=== PATIENT | male | born 1990 | race Asian ===

== ENCOUNTER 2019-10-01 11:39 | Emergency (ER) | payer OTHER ==
[~2019-10-01] VITALS: Ht 162.6 cm; Wt 98.4 kg
[2019-10-01] MEDS ORDERED: MOMETASONE FURO45 GM TOP (11:57)
[2019-10-01 12:16] LABS: ABSOLUTE NEUTROPHILS 7.2 thou/uL (1.4-8.2); BASOPHILS 0.7 % (0.0-2.0); EOSINOPHILS 3.5 % (0.0-3.0); HEMATOCRIT 47.1 % (42.0-52.0); HEMOGLOBIN 16.2 gm/dL (14.0-18.0); LYMPHOCYTES 18.3 % (24.0-44.0); MCHC 34.4 g/dL (28.0-37.0); MCV 87.1 fL (80.0-100.0); MONOCYTES 8.1 % (1.0-8.0); PLATELET COUNT 246 thou/uL (150-400); POLYS 69.4 % (36.0-66.0); RBC 5.41 mil/uL (4.50-6.00); RDW 12.9 % (10.5-14.5); WBC 10.4 thou/uL (4.0-11.0)
[2019-10-01 12:22] LABS: CALCIUM 9.6 mg/dL (8.5-10.1); POTASSIUM 4.1 mmol/L (3.5-5.1)
[2019-10-01 12:26] LABS: APTT 32.1 Seconds (24.5-32.8); INR 1.1; PROTIME 11.4 Seconds (9.3-11.4)
[2019-10-01 12:28] LABS: ALBUMIN 4.2 g/dL (3.4-5.0); TOTAL BILIRUBIN 0.4 mg/dL (<0.1-1.0); TOTAL PROTEIN 8.4 g/dL (6.4-8.2)
[2019-10-01] MEDS ORDERED: NORVASC5 M1 PO (15:20)
[2019-10-01 15:28] VITALS: BP 145/80
== END 2019-10-01 15:28 | disposition home or self-care (01) ==
LOC: ER 11:39
PROVIDERS: Emergency Medicine
DX: L53.9 Erythematous condition, unspecified (principal); M79.89 Other specified soft tissue disorders; Z88.6 Allergy status to analgesic agent; Z91.018 Allergy to other foods

== ENCOUNTER → 2019-10-10 | Outpatient (CLI) | payer OTHER ==
[~2019-10-10] MED LIST: MOMETASONE FURO45 GM TOP; NORVASC5 M1 PO
== END ==
LOC: CAT 10-09 09:44
DX: R60.0 Localized edema (principal)

== ENCOUNTER 2019-10-13 12:29 | Inpatient (IN) | payer OTHER ==
[~2019-10-13] VITALS: Ht 162.6 cm; Wt 98.4 kg
[2019-10-13 14:34] LABS: ABSOLUTE NEUTROPHILS 5.7 thou/uL (1.4-8.2); BASOPHILS 0.5 % (0.0-2.0); EOSINOPHILS 2.2 % (0.0-3.0); HEMATOCRIT 44.3 % (42.0-52.0); HEMOGLOBIN 14.8 gm/dL (14.0-18.0); LYMPHOCYTES 18.3 % (24.0-44.0); MCH 29.3 pg (26.0-34.0); MCHC 33.4 g/dL (28.0-37.0); MCV 87.9 fL (80.0-100.0); MONOCYTES 10.2 % (1.0-8.0); PLATELET COUNT 321 thou/uL (150-400); POLYS 68.8 % (36.0-66.0); RBC 5.04 mil/uL (4.50-6.00); RDW 12.6 % (10.5-14.5); WBC 8.4 thou/uL (4.0-11.0)
[2019-10-13 14:48] LABS: CALCIUM 9.2 mg/dL (8.5-10.1); POTASSIUM 4.7 mmol/L (3.5-5.1)
[2019-10-13 14:53] LABS: ALBUMIN 3.7 g/dL (3.4-5.0); TOTAL BILIRUBIN 0.6 mg/dL (<0.1-1.0); TOTAL PROTEIN 7.7 g/dL (6.4-8.2)
[2019-10-13 15:11] LABS: INR 1.1; PROTIME 11.1 Seconds (9.3-11.4)
[2019-10-13 15:24] LABS: APTT 134.7 Seconds (24.5-32.8)
--- NOTE | 2019-10-13 16:08 | NUR ---
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 PT TX HIMSELF TO ICU BED. ARMBOARD ON LEFT ELBOW TO KEEP ARM STRAIGHT. TPA STARTED, INTEGRILIN INFUSING. ECHO AT BEDSIDE TO COMPLETE. PT'S FATHER BROUGHT HIS LAPTOP AND IPHONE [employer] TO ED, BROUGHT TO ICU BY RT. PT STATES HE IS HUNGRY, REG DIET ORDERED, JELLO AND PUDDING GIVEN SNACKS. WILL HAVE PRN PAIN MEDICINE AFTER HE EATS A BIT OF FOOD.
[2019-10-13 16:15] VITALS: BP 122/66
[2019-10-13 16:30] VITALS: BP 123/69
[2019-10-13 17:15] VITALS: BP 135/83
[2019-10-13 18:15] VITALS: BP 130/74
--- NOTE | 2019-10-14 06:38 | NUR ---
ASSESSMENTS CHARTED, MEDS GIVEN CHARTED. PATIENT RESTING IN BED WITH LEFT UPPER EXTREMITY SPLINTED AND ELEVATED. TPN AND INTEGRILLIN RUNNING CONTINUOUSLY DURING SHIFT. PATIENT HAS VENOUS SHEATH IN PLACE FOR DRIPS. C/O PAIN 8 TO XERO DURING SHIFT. PATIENT HAS BEEN NPO SINCE MIDNIGHT FOR RETURN TO IR THIS MORNING. FALL PRECAUTIONS IN PLACE.
[2019-10-14 08:00] VITALS: BP 126/62
--- NOTE | 2019-10-14 08:10 | NUR ---
VITAL SIGN MONITOR IN PATIENT ROOM DID NOT SAVE PATIENT'S VITAL THROUGH THE NIGHT. THERE ARE NO VITALS TO ENTER. PATIENT'S HEARTRATE, OXYGEN SATURATION, BLOOD PRESSURE, MAP AND PLETH WERE ALL WITHIN NORMAL PARAMETERS DURING SHIFT.
--- NOTE | 2019-10-14 08:42 | 2DMMODE ---
[facility] [place] [address] 2 D/M-MODE ECHOCARDIOGRAM Name: ELISHA ALMENDAREZ ABRAM Room #: 248-P [facility] [id number] Admission: 10/13/19 Attend Phys: Sky Restrepo MD Discharge: Date of : 89 Report #: [id number] THIS REPORT FOR: cc: Juan Buchanan MD, John H. MD Lundgren, Craig H. MD [facility] ~ APPROVED REPORT Study performed: 10/13/2019 15:50:38 EXAM: Comprehensive 2D, Doppler, and color-flow Echocardiogram Patient Location: Bedside Room #: 248 Status: routine BSA: 2.03 HR: 80 bpm BP: 132/75 mmHg Rhythm: NSR Other Information Study Quality: Adequate Technically limited study due to inability to position patient. Indications Hypertension/HDD 2D Dimensions RVDd: 32.00 mm IVSd: 10.44 (7-11mm) LVOT Diam: 23.07 (18-24mm) LVDd: 50.17 mm PWd: 10.01 (7-11mm) Ascending Ao: 26.63 (22-36mm) LVDs: 33.13 (25-40mm) Aortic Root: 28.32 mm IVC: 18.00 mm Volumes Left Atrial Volume (Systole) Single Plane 4CH: 36.42 mL Single Plane 2CH: 23.27 mL LA ESV Index: 17.00 mL/m2 Aortic Valve AoV Peak Kobe.: 1.31 m/s AO Peak Gr.: 6.82 mmHg LVOT Max P.55 mmHg LVOT Max V: 0.94 m/s [facility] [place] [address] 2 D/M-MODE ECHOCARDIOGRAM Name: ELISHA ALMENDAREZ Room #: 248-P [facility]#: [id number] Admission: 10/13/19 Attend Phys: Sky Restrepo, Discharge: Date of : 89 Report #: [id number] Vmax: 3.01 cm2 Mitral Valve E/A Ratio: 1.2 MV Decel. Time: 237.86 ms MV E Max Kobe.: 0.55 m/s MV A Kobe.: 0.47 m/s MV PHT: 68.98 ms IVRT: 93.43 ms Pulmonary Valve PV Peak Kobe.: 0.92 m/s PV Peak Gr.: 3.36 mmHg Pulmonary Vein P Vein S: 0.30 m/s P Vein A: 0.18 m/s P Vein D: 0.41 m/s P Vein A Dur.: 96.9 msec P Vein S/D Ratio: 0.73 Tricuspid Valve RAP Estimate: 5.00 mmHg Left Ventricle The left ventricle is normal size. There is normal LV segmental wall motion. There is normal left ventricular wall thickness. The left ventricular systolic function is normal. The left ventricular ejection fraction is within the normal range. LVEF is 55-60%. The left ventricular diastolic function is normal. Right Ventricle The right ventricle is normal size. The right ventricular systolic function is normal. Atria The left atrium size is normal. The right atrium size is normal. Aortic Valve The aortic valve is normal in structure. No aortic regurgitation is present. There is no aortic valvular stenosis. Mitral Valve The mitral valve is normal in structure. Trace mitral regurgitation. No evidence of mitral valve stenosis. Tricuspid Valve The tricuspid valve is normal in structure. There is no tricuspid [facility] [place] [address] 2 D/M-MODE ECHOCARDIOGRAM Name: ELISHA ALMENDAREZ ABRAM Room #: 248-P [facility]#: [id number] Admission: 10/13/19 Attend Phys: Sky Restrepo, Discharge: Date of : 89 Report #: [id number] valve regurgitation noted. Unable to assess PA pressure. Pulmonic Valve The pulmonary valve is normal in structure. There is no pulmonic valvular regurgitation. Great Vessels The aortic root is normal in size. The ascending aorta is normal in size. IVC is normal in size and collapses >50% with inspiration. Pericardium There is no pericardial effusion. <Conclusion> 1. Normal echocardiogram with Doppler. Ejection fraction 60%. 2. Unable to assess pulmonary artery pressure. 3. No pericardial effusion <ELECTRONICALLY SIGNED> By: Chandan Gutierrez MD, [facility] 10/14/19840 0 0 Chandan Gutierrez MD, FAC /INF
--- NOTE | 2019-10-14 09:11 | EKG ---
[facility] [place] [address] ELECTROCARDIOGRAM REPORT Name: ELISHA ALMENDAREZ Room #: 248-P [facility] M.R.#: [id number] Admission: 10/13/19 Attend Phys: Sky Restrepo MD Discharge: Date of : 89 Report #: [id number] THIS REPORT FOR: cc: Juan Buchanan MD, John H. MD Lundgren,Chandan Lozada MD [facility] ~ THIS REPORT FOR: //name// [facility] Test Date: 2019-10-14 Test Time: 07:04:26 Pat Name: ELISHA ALMENDAREZ Department: Room: 248 P Gender: M Detacher: PAN : 1990 Requested By: Clifton Uriostegui Order Number: [id number] MD: Chandan Gutierrez Measurements Intervals [place] Rate: 61 P: 49 CA: 176 QRS: 69 QRSD: 96 T: 20 QT: 387 QTc: 390 Interpretive Statements Sinus rhythm ST elev, probable normal early repol pattern No previous ECG available for comparison Electronically Signed On 10-14-2019 9:10:35 CDT by Chandan Gutirerez [email or web address] <ELECTRONICALLY SIGNED> By: Chandan Gutierrez MD, [facility] 10/14/19 0910 [id number] Chandan Gutierrez MD, [facility] /EPI
--- NOTE | 2019-10-14 09:40 | NUR ---
chart review, pt out of room for IR procedure. will cont following as needed for dc needs.
[2019-10-14] MEDS ORDERED: XARELTO15 MG PO (10:14)
[2019-10-14 11:56] VITALS: BP 114/56
[2019-10-14 14:28] VITALS: BP 114/56
--- NOTE | 2019-10-14 15:10 | NUR ---
ASSUMED CARE OF PT AT SHIFT CHANGE. ASSESSMENTS CHARTED. MEDS GIVEN PER SEP. PT RETURNED FROM IR APPROX 1000, MOST OF CLOT WAS GONE, ART LINE HAD BEEN REMOVED. PLAN FOR PO XARELTO. PT SLEPT IN BED DURING BEDREST WITH NO COMPLICATIONS. DISCHARGE ORDERS AND INSTRUCTIONS COMPLETE. IV AND TELE LEADS REMOVED. PT TRANSPORT[facility] VIA WHEELCHAIR TO [facility] TO MEET HIS DAD.
[2019-10-14 15:13] VITALS: BP 114/56
== END 2019-10-14 15:25 | disposition home or self-care (01) | DRG 254 ==
LOC: CATH 12:29 → ICU 14:42 → CATH 15:43 → ICU 10-14 15:05 → CATH 10-14 15:05 → ICU 10-14 15:25
PROVIDERS: ADMIT Nuclear Medicine Nuclear Cardiology
DX: I82.B12 Acute embolism and thrombosis of left subclavian vein (principal); I10 Essential (primary) hypertension; I82.890 Acute embolism and thrombosis of other specified veins; I73.00 Raynaud's syndrome without gangrene; Z79.899 Other long term (current) drug therapy; Z91.018 Allergy to other foods
CPT/HCPCS: 10078

== ENCOUNTER → 2020-01-20 | Outpatient (CLI) | payer OTHER ==
[~2020-01-20] MED LIST changes: +XARELTO15 MG PO
== END ==
LOC: SJCVCIMAG 08:49
PROVIDERS: ATTEND Nuclear Medicine Nuclear Cardiology
DX: M79.602 Pain in left arm (principal); M79.89 Other specified soft tissue disorders; G54.0 Brachial plexus disorders

== ENCOUNTER → 2020-10-27 | Outpatient (CLI) | payer BC ==
[~2020-10-27] VITALS: Ht 162.6 cm; Wt 103.0 kg
[~2020-10-27] MED LIST changes: +SUPER THERAVIT1 EACH PO
[2020-10-27 14:23] VITALS: BP 130/68
== END | disposition home or self-care (01) ==
LOC: CATH 06:38
PROVIDERS: ATTEND Nuclear Medicine Nuclear Cardiology
DX: G54.0 Brachial plexus disorders (principal); I82.B22 Chronic embolism and thrombosis of left subclavian vein; M79.89 Other specified soft tissue disorders; E66.9 Obesity, unspecified; Z98.890 Other specified postprocedural states; Z79.899 Other long term (current) drug therapy; Z79.01 Long term (current) use of anticoagulants; Z88.8 Allergy status to other drugs, medicaments and biological substances